=== PATIENT | female | born 1950 | race Caucasian/White ===

== ENCOUNTER 2019-10-23 03:46 | Observation (INO) ==
[2019-10-23] MEDS ORDERED: NS 1,000 ML IV ONE (04:10)
[2019-10-23] MEDS ORDERED: ADENOCARD IV ONE ×2 (04:10)
[2019-10-23] MEDS ORDERED: ADENOCARD ONE ×2 (04:12→04:15)
[2019-10-23] MEDS ORDERED: NS 1,000 ML ONE (04:15)
--- NOTE | 2019-10-23 04:22 | PROVIDER DOCUMENTATION ---
HPI-Cardiac General - General Chief Complaint: Post Op Complaint Stated Complaint: POST-OP/TROUBLE BREATHING, WEAK, Time Seen by Provider: 10/23/19 04:09 Allergies/Adverse Reactions: Patient Allergies Allergy/AdvReac Type Severity Reaction Status Date / Time No Known Allergies Allergy Verified 10/23/19 05:07 Home Medications: Home Medication List Medication Instructions Recorded Confirmed Last Taken Type Clonazepam [Klonopin] 0.5 mg PO BID 11/11/13 10/23/19 11/15/13 22:00 History Duloxetine [Cymbalta] 60 mg PO BID 11/11/13 10/23/19 11/16/13 05:00 History Levothyroxine Sodium [Synthroid] 88 mcg PO DAILY 11/11/13 10/23/19 11/16/13 05:30 History Alendronate [Fosamax] 1 tab PO Q7D 06/28/19 10/23/19 Unknown History Clopidogrel [Plavix] 1 tab PO DAILY 06/28/19 10/23/19 Unknown History Diltiazem HCl [Cartia Xt] 240 tab PO DAILY 06/28/19 10/23/19 Unknown History Linaclotide [Linzess] 190 mcg PO DAILY 06/28/19 10/23/19 Unknown History PRAVAstatin [Pravachol] 20 mg PO DAILY 06/28/19 10/23/19 Unknown History Pantoprazole [Protonix] 20 mg PO DAILY 06/28/19 10/23/19 Unknown History Tramadol [Ultram] 1 tab PO BID PRN 06/28/19 10/23/19 Unknown History Lipase/Protease/Amylase [Zenpep Dr 1 tab PO DAILY 10/23/19 10/23/19 Unknown History 20,000 Unit Capsule] - History of Present Illness-Cardiac Nature of Presenting Problem: Patient is a 69 year old white female with history of SVT, currently taking Cartia XL (Cardizem) , who presents by car with hypotension and SVT with rate of 182. Patient promptly converted to controlled rate and normotension with one dose of 6mg IV Adenocard. patient just underwent left shoulder surgery at [facility] in [place] yesterday by Dr. Sheldon. Denies chest pain, bleeding. Review of Systems - Adult - REVIEW OF SYSTEMS - ADULT Constitutional: denies: chills, fever Eyes: denies: blurred vision Ears, Nose, Mouth & Throat: denies: throat pain Cardiovascular: reports: see HPI, palpitations. denies: chest pain Gastrointestinal: denies: abdominal pain, nausea, rectal bleeding, vomiting Genitourinary: denies: dysuria Musculoskeletal: reports: see HPI (postop shoulder pain) Integumentary: reports: no symptoms reported Neurological: reports: dizziness/vertigo Psychiatric: reports: no symptoms reported Endocrine: reports: see HPI Hematologic/Lymphatic: reports: see HPI Allergic/Immunologic: reports: no symptoms reported All Other Systems: Reviewed and Negative Past History - Adult - PAST MEDICAL HISTORY-ADULT Review of Records: reports: Old Records Reviewed, Nursing Assessment Review, Medications Reviewed, Social history reviewed & non-contributory. Cardiovascular: reports: arrhythmia (SVT) Respiratory: reports: denies history Gastrointestinal: reports: denies history Genitourinary: reports: denies history Musculoskeletal: reports: other (left rotator cuff disease) Neurological: reports: denies history Psychiatric: reports: denies history Physical Exam-General - CONSTITUTIONAL General Appearance: alert, other (initially pale, diaphoretic, hypotensive, rapid pulse) - EYES Eyes: other (clear) - HEAD, EARS, NOSE, MOUTH & THROAT HENMT: normocephalic/atraumatic, moist mucous membranes - NECK Neck: supple - RESPIRATORY Respiratory: lungs clear - CARDIOVASCULAR Cardiovascular: tachycardia - GASTROINTESTINAL (ABDOMEN) Abdominal Exam: soft - LYMPHATIC Lymphatic: no adenopathy - MUSCULOSKELETAL Back Exam: normal inspection, no CVA tenderness Extremity: tenderness (tender over left shoulder with dressing in place) - SKIN Integumentary: other (pale, poor perfusion initially) - NEUROLOGIC Neurologic: grossly normal - PSYCHIATRIC Psych/Mental Status: anxious Progress - PLAN OF CARE/RESULTS Progress/Plan/Lab Results: Vital Signs - 8 hr 10/23/19 04:09 10/23/19 04:33 Temperature 94.2 F L 97.3 F L Pulse Rate 184 H Respiratory Rate 16 Blood Pressure 103/84 O2 Sat by Pulse Oximetry 100 Laboratory Results - last 24 hr 10/23/19 10/23/19 10/23/19 04:08 04:08 04:08 WBC 7.96 RBC 3.88 L Hgb 11.3 L Hct 35.8 L MCV 92.3 MCH 29.1 MCHC 31.6 L RDW Std Deviation 13.1 Plt Count 339 MPV 10.7 H Immature Gran % (Auto) 0.0 Neut % (Auto) 64.8 Lymph % (Auto) 21.6 Clay % (Auto) 7.9 Eos % (Auto) 5.4 Baso % (Auto) 0.3 Immature Gran # (Auto) 0.00 Neut # (Auto) 5.16 Lymph # (Auto) 1.72 Clay # (Auto) 0.63 H Eos # (Auto) 0.43 Baso # (Auto) 0.02 PT INR PTT (Actin FS) Sodium 135 L Potassium 4.3 Chloride 98 Carbon Dioxide 22 L Anion Gap 15 BUN 15 Creatinine 0.7 Estimated GFR/1.73 m2 > 60 BUN/Creatinine Ratio 21 Glucose 162 H POC Glucose Calculated Osmolality 274 Calcium 8.9 Total Bilirubin 1.02 H AST 21 ALT 7 L Alkaline Phosphatase 94 Creatine Kinase 411 H Creatine Kinase Index 1.0 CK-MB (CK-2) 4.09 Troponin T High Sens Total Protein 6.1 L Albumin 3.7 Globulin 2.4 Albumin/Globulin Ratio 1.5 Plasma Lactate 2.5 H 10/23/19 10/23/19 10/23/19 04:08 04:08 04:34 WBC RBC Hgb Hct MCV MCH MCHC RDW Std Deviation Plt Count MPV Immature Gran % (Auto) Neut % (Auto) Lymph % (Auto) Clay % (Auto) Eos % (Auto) Baso % (Auto) Immature Gran # (Auto) Neut # (Auto) Lymph # (Auto) Clay # (Auto) Eos # (Auto) Baso # (Auto) PT 14.7 INR 1.14 PTT (Actin FS) 37.1 Sodium Potassium Chloride Carbon Dioxide Anion Gap BUN Creatinine Estimated GFR/1.73 m2 BUN/Creatinine Ratio Glucose POC Glucose 125 H Calculated Osmolality Calcium Total Bilirubin AST ALT Alkaline Phosphatase Creatine Kinase Creatine Kinase Index CK-MB (CK-2) Troponin T High Sens 20 H Total Protein Albumin Globulin Albumin/Globulin Ratio Plasma Lactate Orders Category Date Time Status Cardiac Monitoring DIRECTED Care 10/23/19 04:09 Active FSBS/Accucheck Result NOW Care 10/23/19 04:11 Active IV Insertion ORDERED Care 10/23/19 04:11 Completed Notify MD of + Sepsis Screen NOW Care 10/23/19 04:11 Active Notify Physician As Ordered Care 10/23/19 04:11 Active CHEST-1 VIEW [RAD] Stat Exams 10/23/19 04:11 Taken BLOOD CULTURE [BLDCUL] Stat Lab 10/23/19 04:08 Ordered CBC WITH DIFF [HEME] Stat Lab 10/23/19 04:08 Completed CK PROFILE [SP CHEM] Stat Lab 10/23/19 04:08 Completed COMPREHENSIVE METABOLIC PANEL [CHEM] Stat Lab 10/23/19 04:08 Completed LACTATE, PLASMA [CHEM] Lab 10/23/19 04:08 Completed LACTATE, PLASMA [CHEM] Lab 10/23/19 07:15 Uncollected LACTATE, PLASMA [CHEM] Lab 10/23/19 10:15 Uncollected PROTIME WITH INR [COAG] Stat Lab 10/23/19 04:08 Completed PTT [COAG] Stat Lab 10/23/19 04:08 Completed TROPONIN T HIGH SENSITIVITY Stat Lab 10/23/19 04:08 Completed 0.9% Sodium Chloride Inj [Ns] 1,000 ml Med 10/23/19 04:15 Discontinued .ROUTE As directed 0.9% Sodium Chloride Inj [Ns] 1,000 ml Med 10/23/19 04:10 Discontinued IV 999 mls/hr Adenosine [Adenocard] Med 10/23/19 04:12 Discontinued 12 mg .ROUTE .STK-MED ONE Adenosine [Adenocard] Med 10/23/19 04:10 Discontinued 12 mg IV NOW ONE Adenosine [Adenocard] Med 10/23/19 04:15 Discontinued 6 mg .ROUTE .STK-MED ONE Adenosine [Adenocard] Med 10/23/19 04:10 Discontinued 6 mg IV NOW ONE Hydrocodone/APAP 7.5 mg/325 mg [[place]-7.5] Med 10/23/19 05:16 Discontinued 1 each PO NOW ONE Oxygen Device Stat Oth 10/23/19 04:09 Active EKG [EKG] Stat Ther 10/23/19 04:08 Ordered Result Diagrams: 10/23/19 04:08 10/23/19 04:08 - EKG 1 Time of EKG reading by physician:: 04:13 EKG Read and Signed by:: Guillermo Lopes Rate: 182 Rhythm: SVT [place]: normal ST Wave: non-specific ST changes 2 Time of EKG reading by physician:: 04:16 EKG Read and Signed by:: Guillermo Lopes Rate: 106 Rhythm: sinus tach QRS: normal ST Wave: non-specific ST changes Comments: no STEMI - CONSULTS/PCP/HOSPITALIST Notification #1 *Consult/PCP/Hospitalist*: Dr. Meeks, hospitalist Time Discussed: 06:10 Consult Disposition: Admit Departure - Departure Date of Disposition Decision: 10/23/19 Time of Disposition Decision: 06:21 DIAGNOSIS: SVT (supraventricular tachycardia) Disposition: ADMITTED INPATIENT 09 Certified Medical Emergency: Emergent Condition: Stable Referrals and Follow-Ups: Elisa Monte MD [Primary Care Provider] - - Critical Care Note This patient required my direct & personal management of CC.: Yes Attestation - Physician/ MAGALY Attestation Patient care was provided by Advanced Practice Provider:: No The physician spent face to face time with patient:: Yes Advanced Practice Provider documentation review:: Supervising physician onsite and consulted in the evaluation and care of this patient. The physician did have a face to face encounter with the patient.
[2019-10-23 04:37] LABS: BASO# 0.02 X1000 (0.0-0.2); BASO% 0.3 % (0.0-0.8); EOS# 0.43 X1000 (0.0-0.7); EOS% 5.4 % (0.0-10.0); HEMATOCRIT 35.8 % (37.0-47.0); HEMOGLOBIN 11.3 g/dL (12.0-16.0); LYMPH# 1.72 X1000 (1.2-3.4); LYMPH% 21.6 % (20.5-51.1); MCH 29.1 PG (27-31); MCHC 31.6 g/dL (33-37); MCV 92.3 FL (81-99); MONO# 0.63 X1000 (0.11-0.59); MONO% 7.9 % (1.7-9.3); MPV 10.7 FL (7.4-10.4); NEUT# 5.16 X1000 (1.4-6.5); NEUT% 64.8 % (42.2-75.2); PLT 339 X1000 (130-400); RBC 3.88 XMIL (4.2-5.4); RDW 13.1 % (11.5-14.5); WBC 7.96 X1000 (4.8-10.8)
[2019-10-23 05:00] LABS: INR 1.14; PROTIME 14.7 Seconds (11.0-16.0)
[2019-10-23 05:01] LABS: PTT 37.1 Seconds (22.3-41.8)
[2019-10-23] MEDS ORDERED: NORCO-7.5 PO ONE ×2 (05:16→12:24)
[2019-10-23 05:25] LABS: AGAP 15; ALB/GLOB RATIO 1.5; ALBUMIN 3.7 g/dL (3.5-5.0); ALKALINE PHOSPHATASE 94 U/L (32-104); BUN 15 mg/dL (8-22); CALCIUM 8.9 mg/dL (8.8-10.2); CHLORIDE 98 mmol/L (98-107); COSMO 274; CREATININE 0.7 mg/dL (0.5-0.9); ESTIMATED GFR > 60; GLUCOSE 162 mg/dL (70-104); GOT 21 U/L (10-30); GPT 7 U/L (10-36); POTASSIUM 4.3 mmol/L (3.5-5.1); SODIUM 135 mmol/L (136-145); TCO2 22 mmol/L (25-35); TOTAL BILIRUBIN 1.02 mg/dL (0.20-1.00); TOTAL PROTEIN 6.1 g/dL (6.3-8.3)
[2019-10-23 05:30] LABS: CK PROFILE 411 U/L (24-173)
[2019-10-23 06:03] LABS: CK-MB 4.09 ng/mL (0.0-5.0)
--- NOTE | 2019-10-23 07:11 | HISTORY AND PHYSICAL ---
PRIMARY CARE PHYSICIAN: Dr. Monte. CHIEF COMPLAINT: Heart racing. HISTORY OF PRESENTING ILLNESS: A 69-year-old female with a history of SVT, hyperlipidemia, hypothyroidism and GERD, who had presented to emergency department with 1-day history of heart racing. She felt like she was going to pass out. She was brought to the emergency department and she was found to be diaphoretic and was in SVT. She was given adenosine and she converted to sinus rhythm. However due to her presenting symptoms, it was thought that we will place her in observation for further evaluation and management. At the time of my examination, patient denied any headache, fever, chills, chest pain, shortness of breath or weight changes. States that she feels much better. PAST MEDICAL HISTORY: Includes SVT, hyperlipidemia, hypothyroidism, GERD. PAST SURGICAL HISTORY: Recent left shoulder surgery, hysterectomy, cholecystectomy, back surgery, right total knee, cataract surgery, left breast lumpectomy. ALLERGIES: No known drug allergies. CURRENT MEDICATIONS: Fosamax 35 mg 1 tab q. 7 days, Klonopin 0.5 mg b.i.d., Plavix 75 mg p.o. daily, diltiazem 240 mg p.o. daily, duloxetine 60 mg p.o. b.i.d., levothyroxine 88 mcg p.o. daily, pantoprazole 20 mg p.o. daily, pravastatin 20 mg p.o. daily, tramadol 50 mg p.o. b.i.d. SOCIAL HISTORY: She is a former smoker. No history of alcohol or illicit drug use. FAMILY HISTORY: Positive for coronary disease in mother. REVIEW OF SYSTEMS: A 14-point review of systems is as listed in HPI. Other systems negative. PHYSICAL EXAMINATION: GENERAL: Cooperative, friendly female. She is resting more comfortably now. VITAL SIGNS: Temperature 98.4 degrees, pulse 100, respirations 16, blood pressure 103/84. HEENT: Atraumatic, normocephalic. Extraocular movements intact. PERRLA. NECK: Supple. CHEST: Clear to auscultation. CARDIOVASCULAR: Regular rate and rhythm. ABDOMEN: Soft. Positive bowel sounds. EXTREMITIES: No edema. NEUROLOGIC: She is awake, alert, oriented x3. : No bladder distention. SKIN: Warm. LABORATORIES AND STUDIES: WBC 7.96, hemoglobin 11.3, hematocrit 35.8, platelets 339. Sodium 135, potassium 4.3, chloride 98, CO2 is 22. BUN is 15, creatinine 0.7, glucose 162. ASSESSMENT: A 69-year-old female with a history of supraventricular tachycardia, hyperlipidemia, hypothyroidism and gastroesophageal reflux disease, who had presented to emergency department with a 1-day history of heart palpitations. She was evaluated in the emergency department. She was somewhat diaphoretic. She was in supraventricular tachycardia. She was given adenosine and she converted to normal sinus rhythm. Subsequently, we will place her for observation for further evaluation and management. ASSESSMENT: 1. Supraventricular tachycardia. 2. Hyperlipidemia. 3. Hypothyroidism. 4. Gastroesophageal reflux disease. PLAN: 1. We will admit patient to medical floor with telemetry. 2. We will get a repeat EKG. 3. We will consult her delinquent tax collection assistant. 4. Restart other home medications. 5. We will check a thyroid profile. 6. Put patient on DVT prophylaxis of SCDs. 7. We will continue to follow and reassess, make further recommendation based on patient's clinical course. cc: Nathan Meeks MD
[2019-10-23] MEDS ORDERED: ULTRAM PO PRN (08:02)
[2019-10-23] MEDS ORDERED: FOSAMAX PO SCH (08:02)
[2019-10-23] MEDS ORDERED: ZOFRAN IV PRN (08:02)
[2019-10-23] MEDS ORDERED: LIPASE PO SCH (09:00)
[2019-10-23] MEDS ORDERED: PROTEASE PO SCH (09:00)
[2019-10-23] MEDS ORDERED: CARDIZEM CD PO SCH (09:00)
[2019-10-23] MEDS ORDERED: PRILOSEC PO SCH (09:00)
[2019-10-23] MEDS ORDERED: CYMBALTA PO SCH (09:00)
[2019-10-23] MEDS ORDERED: SYNTHROID PO SCH (09:00)
[2019-10-23] MEDS ORDERED: LINZESS PO SCH (09:00)
[2019-10-23] MEDS ORDERED: PLAVIX PO SCH (09:00)
[2019-10-23] MEDS ORDERED: KLONOPIN PO SCH (09:00)
[2019-10-23] MEDS ORDERED: AMYLASE PO SCH (09:00)
--- NOTE | 2019-10-23 10:57 | Diag Imaging Result Doc PS360 ---
EXAM: CHEST-1 VIEW INDICATION: possible sepsis TECHNIQUE: One view COMPARISON: 01/25/2013 FINDINGS: Lung volumes are very low. There is suggestion of mild atelectasis at the left lung base. No well-defined airspace consolidation can be identified. There is no discrete pleural fluid collection or pneumothorax. The cardiomediastinal silhouette and central vasculature are grossly unremarkable accounting for magnification from AP technique. IMPRESSION: Very low lung volumes and suggestion of atelectasis at the left lung base. Electronically signed by Cristhian So 10/23/2019 10:55 AM
[2019-10-23] MEDS ORDERED: NORCO-7.5 ONE (12:38)
--- NOTE | 2019-10-23 14:22 | CARDIOLOGY CONSULTATION ---
DATE: 10/23/2019 CHIEF COMPLAINT: Heart racing. HISTORY OF PRESENT ILLNESS: Ms. Collado is a 69-year-old white female with a history of SVT, who was at her home in her usual state of health yesterday. She was in her recliner when she began having the onset of heart racing. She subsequently presented to the ER, was found to be in a narrow complex tachycardia, was administered adenosine with conversion to sinus. The patient has not had any episodes of chest pain. She denies any orthopnea, although she did have shortness of breath occurring with the episode. She has been referred to EP in the past, but refuses. PAST MEDICAL HISTORY: Significant for: 1. SVT. 2. Hyperlipidemia. 3. TIA. 4. Hypothyroidism. 5. Vertigo. 6. Reflux disease. 7. Anxiety. SOCIAL HISTORY: She is . Her is present in the room. Does not currently smoke. FAMILY HISTORY: Significant for coronary disease in the mother. REVIEW OF SYSTEMS: A 10 system review of systems is negative, except for those things mentioned in HPI. PHYSICAL EXAMINATION: Vital Signs: Afebrile. Heart rate 93, blood pressure 131/70. Generally: No acute distress. HEENT: Oropharynx is moist. Poor dentition. Eye examination shows pink conjunctivae, white sclerae. Neck: Examination shows no obvious thyromegaly or thyroid tenderness. Cardiovascular: She sounds to be in a regular rate and rhythm. She has no murmurs, no S3, no lower extremity edema. Chest: Her chest exam is clear to auscultation bilaterally. She has no increased work of breathing. Abdomen: Soft, nontender. Neurological: She is moving all extremities well. She has no lateralizing deficits. Skin: Warm and dry throughout without any rashes. PERTINENT DATA: Her chest x-ray shows very low lung volumes. Evidence of atelectasis in the left lung base. Her presenting EKG shows a narrow complex SVT. Subsequently she converted into sinus rhythm. Her lab data shows a white count is 7.9, hematocrit 35, platelet count 339. Sodium 135, potassium 4.3, BUN is 15, creatinine 0.7. Free T4 was 1.33. Her troponins were checked; initial was 20 and subsequent 68. ASSESSMENT: Ms. Collado is a 69-year-old female, who presented for evaluation of a supraventricular tachycardia. PLAN: She had a normal myocardial perfusion scan in April with a normal ejection fraction. She had a normal echocardiogram at that time as well. She has been referred to EP in the past and has refused. She seems more amenable to that at this time. I will make the referral to the Electrophysiology Service as an outpatient. For now, I would continue her on the diltiazem. From my standpoint, she can be discharged when stable from a primary care team standpoint. cc: Lemuel Dugan MD
[2019-10-23 14:32] VITALS: BP 131/75
--- NOTE | 2019-10-23 17:49 | EKG Report ---
Test Performed on : 10/23/2019 04:12:22 AM Test Reason : pain Blood Pressure : / mmHG Vent. Rate : 182 BPM Atrial Rate : 182 BPM P-R Int : 000 ms QRS Dur : 080 ms QT Int : 224 ms P-R-T Axes : 000 028 199 degrees QTc Int : [address] & T wave abnormality, consider inferior ischemia ST & T wave abnormality, consider anterolateral ischemia Abnormal ECG When compared with ECG of 28-JUN-2019 13:49, Vent. rate has increased BY [address] now depressed in Inferior leads ST now depressed in Anterolateral leads T wave inversion now evident in Inferior leads T wave inversion now evident in Anterolateral leads Unconfirmed Result
--- NOTE | 2019-10-23 17:56 | EKG Report ---
Test Performed on : 10/23/2019 12:41:46 PM Test Reason : svt Blood Pressure : / mmHG Vent. Rate : 083 BPM Atrial Rate : 083 BPM P-R Int : 164 ms QRS Dur : 060 ms QT Int : 360 ms P-R-T Axes : 039 015 046 degrees QTc Int : 423 ms Normal sinus rhythm. Septal infarct , age undetermined Abnormal ECG When compared with ECG of 23-OCT-2019 04:15, (Unconfirmed) Septal infarct is now present ST elevation now present in Inferior leads Non-specific change in ST segment in Lateral leads Confirmed by Castro EDOUARD, Mesfin Monae ([id number]) on 10/24/2019 9:25:17 AM
[2019-10-23] MEDS ORDERED: PRAVACHOL PO SCH (21:00)
--- NOTE | 2019-10-25 08:33 | EKG Report ---
Test Performed on : 10/23/2019 04:15:29 AM Test Reason : CHANGE IN RHYTHM Blood Pressure : / mmHG Vent. Rate : 106 BPM Atrial Rate : 106 BPM P-R Int : 150 ms QRS Dur : 076 ms QT Int : 326 ms P-R-T Axes : 036 025 060 degrees QTc Int : 433 ms Sinus tachycardia. Low voltage QRS Nonspecific T wave abnormality Abnormal ECG When compared with ECG of 23-OCT-2019 04:12, (Unconfirmed) Vent. rate has decreased BY [address] no longer depressed in Inferior leads ST no longer depressed in Anterolateral leads T wave inversion no longer evident in Lateral leads Unconfirmed Result
== END 2019-10-23 14:20 | disposition home or self-care (01) ==
LOC: ED 03:46 → EDIPHOLD 03:46 → SUATTDRO 07:59 → 4N 12:34 → EDIPHOLD 13:43
PROVIDERS: ATTEND Internal Medicine